=== PATIENT | female | born 1990 | race Hispanic/Latino ===

== ENCOUNTER 2016-04-24 22:33 | Emergency (ER) | payer SELFPAY ==
[2016-04-24 22:57] VITALS: BP 91/58
== END 2016-04-24 23:00 | disposition left against medical advice (07) ==
LOC: ED 22:33
DX: T43.591A Poisoning by other antipsychotics and neuroleptics, accidental (unintentional), initial encounter (principal); Y92.9 Unspecified place or not applicable; Z53.21 Procedure and treatment not carried out due to patient leaving prior to being seen by health care provider

== ENCOUNTER 2019-04-20 18:34 | Emergency (ER) | payer SELFPAY ==
[2019-04-20 19:36] VITALS: BP 128/76
--- NOTE | 2019-04-20 19:37 | Emergency Department Report ---
Blank Doc - Documentation Documentation: 29-year-old female that presents with palm rash and web of fingers. This initial assessment/diagnostic orders/clinical plan/treatment(s) is/are subject to change based on patient's health status, clinical progression and re- assessment by fellow clinical providers in the ED. Further treatment and workup at subsequent clinical providers discretion. Patient/guardians urged not to elope from the ED as their condition may be serious if not clinically assessed and managed. Initial orders include: 1- Patient sent to [facility] for further evaluation and treatment 2- RPR/CRP
[2019-04-20] MEDS ORDERED: predniSONE 20 MG TAB PO ONE (21:41)
[2019-04-20] MEDS ORDERED: diphenhydrAMINE 25 MG/10 ML ORAL LIQUID PO ONE (21:42)
--- NOTE | 2019-04-20 22:14 | Emergency Department Report ---
ED General Adult HPI - General Chief complaint: Skin Rash Stated complaint: HANDS ITCHY/RASH Time Seen by Provider: 04/20/19 19:36 Source: patient Mode of arrival: Ambulatory Limitations: No Limitations - History of Present Illness Initial comments: 67 y.o. female with history of schizophrenia and depression presents with rash to the bilateral hand region. Patient states the resident in the past month. Patient denies any gynecologic rash. Patient states that she has had no new soaps or detergents. Patient states she's been taking Benadryl for the itching. Patient states no other contacts around her has had a similar type rash. Patient denies any recent travel or exposures or any wooded areas. - Related Data Previous Rx's Medication Instructions Recorded Last Taken Type Clotrimazole 1% [Lotrimin 1%] 1 applic TP BID #1 tube 04/20/19 Unknown Rx diphenhydrAMINE [Benadryl CAP] 25 mg PO Q8HR PRN #20 capsule 04/20/19 Unknown Rx predniSONE [Deltasone] 40 mg PO QDAY #10 tab 04/20/19 Unknown Rx Allergies Allergy/AdvReac Type Severity Reaction Status Date / Time No Known Allergies Allergy Verified 04/20/19 18:36 ED Review of Systems ROS: Stated complaint: HANDS ITCHY/RASH Other details as noted in HPI Constitutional: denies: chills, fever Eyes: denies: eye pain, eye discharge, vision change ENT: denies: ear pain, throat pain Respiratory: denies: cough, shortness of breath, wheezing Cardiovascular: denies: chest pain, palpitations Endocrine: no symptoms reported Gastrointestinal: denies: abdominal pain, nausea, diarrhea Genitourinary: denies: urgency, dysuria, discharge Musculoskeletal: denies: back pain, joint swelling, arthralgia Skin: rash Neurological: denies: headache, weakness, paresthesias Psychiatric: denies: anxiety, depression Hematological/Lymphatic: denies: easy bleeding, easy bruising ED Past Medical Hx - Past Medical History Previous Medical History?: Yes Hx Psychiatric Treatment: Yes (schziophernia and depression) - Surgical History Past Surgical History?: No - Social History Smoking Status: Never Smoker Substance Use Type: None - Medications Home Medications: Home Medications Medication Instructions Recorded Confirmed Last Taken Type Clotrimazole 1% [Lotrimin 1%] 1 applic TP BID #1 tube 04/20/19 Unknown Rx diphenhydrAMINE [Benadryl CAP] 25 mg PO Q8HR PRN #20 capsule 04/20/19 Unknown Rx predniSONE [Deltasone] 40 mg PO QDAY #10 tab 04/20/19 Unknown Rx ED Physical Exam - General Limitations: No Limitations General appearance: alert, in no apparent distress - Head Head exam: Present: atraumatic, normocephalic - Eye Eye exam: Present: normal appearance - ENT ENT exam: Present: mucous membranes moist - Neck Neck exam: Present: normal inspection - Respiratory Respiratory exam: Present: normal lung sounds bilaterally. Absent: respiratory distress - Cardiovascular Cardiovascular Exam: Present: regular rate, normal rhythm. Absent: systolic murmur, diastolic murmur, rubs, gallop - GI/Abdominal GI/Abdominal exam: Present: soft, normal bowel sounds - Extremities Exam Extremities exam: Present: normal inspection - Back Exam Back exam: Present: normal inspection - Neurological Exam Neurological exam: Present: alert, oriented X3 - Psychiatric Psychiatric exam: Present: normal affect, normal mood - Skin Skin exam: Present: warm, dry, intact, normal color, rash (white scaly rash noted on palmar aspect with no interdigital component; no urticarial compoenent) ED Course Vital Signs 04/20/19 19:34 Temperature 98.5 F Pulse Rate 86 Respiratory 18 Rate Blood Pressure 128/76 O2 Sat by Pulse 100 Oximetry ED Medical Decision Making - Medical Decision Making Patient presents with scaly rash to bilateral palmar aspect. patient to be given antifungal cream and benadryl and discharged to follow up with PCP. - Differential Diagnosis Dermatitis; Critical care attestation.: If time is entered above; I have spent that time in minutes in the direct care of this critically ill patient, excluding procedure time. ED Disposition Clinical Impression: Tinea manuum, Dermatitis Disposition: - TO HOME OR SELFCARE Is pt being admited?: No Condition: Stable Instructions: Contact Dermatitis (ED), Tinea Corporis (ED) Prescriptions: diphenhydrAMINE [Benadryl CAP] 25 mg PO Q8HR PRN #20 capsule PRN Reason: Itching predniSONE [Deltasone] 40 mg PO QDAY #10 tab Clotrimazole 1% [Lotrimin 1%] 1 applic TP BID #1 tube Referrals: ROSA LERMA MD [Staff Physician] - 3-5 Days Time of Disposition: 22:14 Print Language: SRI LANKAN
== END 2019-04-20 22:34 | disposition home or self-care (01) ==
LOC: ED 18:34
DX: B35.2 Tinea manuum (principal); L30.8 Other specified dermatitis; F20.89 Other schizophrenia; F32.89 Other specified depressive episodes
CPT/HCPCS: 36415; 85652; 86140; 99283; J7512; Q0163